=== PATIENT | male | born 1985 | race African-American/Black ===

== ENCOUNTER 2017-03-29 22:27 | Emergency (ER) | payer SELFPAY ==
[~2017-03-29] VITALS: Ht 175.3 cm; Wt 95.3 kg
[2017-03-29] MEDS ORDERED: LISINOPRIL (22:42)
[2017-03-29] MEDS ORDERED: ATIVAN (22:42)
[2017-03-29 23:03] LABS: BILIRUBIN,URINE NEGATIVE (NEGATIVE); KETONES,URINE NEGATIVE (NEGATIVE); LEUKOCYTE ESTERASE ,URINE 2+ (NEGATIVE); NITRITE,URINE NEGATIVE (NEGATIVE); PH,URINE 5 (5-9); PROTEIN,URINE 1+ (NEGATIVE); UROBILINOGEN,URINE NORMAL (NORMAL)
[2017-03-29 23:18] LABS: WBC,URINE 25-50 /HPF
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
[2017-03-29 23:26] LABS: BASOPHILS % (AUTO) 0 % (0-10); EOSINOPHILS # (AUTO) 0.3 10^3/uL (0.0-0.3); EOSINOPHILS % (AUTO) 5 % (0-10); LYMPHOCYTES # (AUTO) 1.8 X 10^3 (1.0-4.0); LYMPHOCYTES % (AUTO) 29 % (12-44); MEAN CORPUSCULAR HEMOGLOBIN 30 PG (25-34); MEAN CORPUSCULAR HGB CONC 33 G/DL (32-36); MEAN CORPUSCULAR VOLUME 90 FL (80-99); MEAN PLATELET VOLUME 11.1 FL (7.4-10.4); MONOCYTES # (AUTO) 0.4 X 10^3 (0.0-1.0); MONOCYTES % (AUTO) 7 % (0-12); NEUTROPHILS # (AUTO) 3.7 X 10^3 (1.8-7.8); NEUTROPHILS % (AUTO) 59 % (42-75); PLATELET COUNT 182 10^3/uL (130-400); RED BLOOD COUNT 5.18 10^6/uL (4.35-5.85); RED CELL DISTRIBUTION WIDTH 13.4 % (10.0-14.5); WHITE BLOOD COUNT 6.2 10^3/uL (4.3-11.0)
[2017-03-29 23:42] LABS: ALANINE AMINOTRANSFERASE 14 U/L (0-55); ALBUMIN 4.3 GM/DL (3.2-4.5); ALCOHOL < 10 MG/DL (<10); ANION GAP 12 MMOL/L (5-14); ASPARTATE AMINO TRANSFERASE 14 U/L (5-34); BILIRUBIN,TOTAL 0.3 MG/DL (0.1-1.0); BLOOD UREA NITROGEN 11 MG/DL (7-18); BUN/CREATININE RATIO 13; CALCIUM 9.6 MG/DL (8.5-10.1); CARBON DIOXIDE 25 MMOL/L (21-32); CHLORIDE 103 MMOL/L (98-107); CREATININE SERUM 0.85 MG/DL (0.60-1.30); GFR ESTIMATED > 60; GLUCOSE 107 MG/DL (70-105); POTASSIUM 3.7 MMOL/L (3.6-5.0); SALICYLATE < 5.0 MG/DL (5.0-20.0); SODIUM 140 MMOL/L (135-145); TOTAL PROTEIN 7.5 GM/DL (6.4-8.2)
[2017-03-29 23:44] LABS: ACETAMINOPHEN < 10 UG/ML (10-30)
[2017-03-29] MEDS ORDERED: HYDR50CA PO (23:53)
[2017-03-29] MEDS ORDERED: LISI1TAB6 PO (23:53)
[2017-03-29] MEDS ORDERED: CIPR-225 PO (23:53)
[2017-03-30] MEDS: lisINopril 10 MG (PRINIVIL) TAB PO ONE (00:17)
[2017-03-30] MEDS: hydrOXYzine (VISTARIL) 25 MG CAP PO ONE (00:20)
[2017-03-30 00:21] VITALS: BP 0/0
== END 2017-03-30 00:21 | disposition home or self-care (01) ==
LOC: ER 22:29
DX: F41.9 Anxiety disorder, unspecified (principal); I10 Essential (primary) hypertension; N39.0 Urinary tract infection, site not specified
CPT/HCPCS: 36415; 80053; 80306; 80320; 80329; 81000; 84443; 85025; 87088